=== PATIENT | female | born 1950 | race African-American/Black ===

== ENCOUNTER 2017-03-20 00:52 | Emergency (ER) | payer OTHER ==
[~2017-03-20] VITALS: Ht 165.1 cm; Wt 75.3 kg
[~2017-03-20 00:52] MED LIST: ANT25 PO; COLACE100 MG PO; ECO81 PO; GABAPENTIN TAB600 M1 PO; HYDRALAZINE HCL25 MG PO; JANUVIA100 M1 PO; NEU300 PO; PRAVACHOL20 MG PO; PRO30 PO; PRO60 PO; VITAMIN D22000 I1 PO; ZESTRIL10 MG PO
[2017-03-20 01:16] VITALS: Ht 165.1 cm; Wt 75.3 kg
[2017-03-20 02:30] VITALS: BP 158/75
== END 2017-03-20 02:30 | disposition home or self-care (01) ==
LOC: ED 00:52
DX: S61.211A Laceration without foreign body of left index finger without damage to nail, initial encounter (principal); I10 Essential (primary) hypertension; E11.9 Type 2 diabetes mellitus without complications; Z88.0 Allergy status to penicillin; W26.8XXA Contact with other sharp object(s), not elsewhere classified, initial encounter; Y93.89 Activity, other specified; Y92.89 Other specified places as the place of occurrence of the external cause; Y99.8 Other external cause status
CPT/HCPCS: 90715; J2001

== ENCOUNTER 2017-06-28 12:38 | Inpatient (IN) | payer OTHER ==
[~2017-06-28] VITALS: Ht 165.1 cm; Wt 75.4 kg
[2017-06-28 12:39] VITALS: Ht 165.1 cm; Wt 75.4 kg
[2017-06-28 13:31] LABS: BASOPHIL % 1.1 % (0-2); PLATELET COUNT 275 x10^3mcL (130-400)
[2017-06-28 13:37] LABS: CALCIUM 8.6 mg/dL (8.5-10.1); CARBON DIOXIDE 27.1 mmol/L (21-32); CREATININE SERUM 2.9 mg/dL (0.6-1.0); RED CELL DISTRIBUTION WIDTH 14.7 % (11.5-14.5)
[2017-06-28 13:42] LABS: POTASSIUM SERUM 5.6 mmol/L (3.5-5.1)
[2017-06-28 13:43] LABS: rbc morphology (normal/abnorm) ABNORMAL (NORMAL)
[2017-06-28 15:35] LABS: T3 TOTAL 0.9 ng/mL
[2017-06-28 15:40] LABS: MAGNESIUM 1.8 mg/dL (1.8-2.4); PHOSPHOROUS 4.3 mg/dL (2.5-4.9)
[2017-06-28 16:02] LABS: FREE T4 0.95 ng/dL (0.76-1.46); FREE THYROXINE INDEX 2.2 ug/dL (1.4-4.5); T4(THYROXINE) 6.8 ug/dL (4.7-13.3)
[2017-06-28 16:36] VITALS: BP 111/60
[2017-06-28 17:09] LABS: TOTAL IRON BINDING CAPACITY 286 ug/dL (250-450)
[2017-06-28 17:18] LABS: IRON 31 ug/dL (50-170)
[2017-06-28 19:20] VITALS: BP 162/48
[2017-06-28 22:12] VITALS: BP 172/61
[2017-06-29 04:48] LABS: microscopic required? YES; urine erythrocyte NEGATIVE (NEGATIVE)
[2017-06-29 04:55] LABS: AMPHETAMINE QUAL UR NONE DETECTED (NEG <=1000)
[2017-06-29 06:27] VITALS: BP 158/65
[2017-06-29 06:28] LABS: CALCIUM 8.2 mg/dL (8.5-10.1); CARBON DIOXIDE 22.7 mmol/L (21-32); CREATININE SERUM 2.7 mg/dL (0.6-1.0); MAGNESIUM 1.9 mg/dL (1.8-2.4); PHOSPHOROUS 5.5 mg/dL (2.5-4.9); POTASSIUM SERUM 5.3 mmol/L (3.5-5.1)
[2017-06-29 06:52] LABS: CHOLESTEROL/HDL RATIO 1.7
[2017-06-29 07:23] LABS: BASOPHIL % 0.5 % (0-2); PLATELET COUNT 236 x10^3mcL (130-400); RED BLOOD CELLS 3.25 M/mm3 (4.10-5.10)
[2017-06-29 07:28] LABS: RED CELL DISTRIBUTION WIDTH 14.9 % (11.5-14.5)
[2017-06-29 09:35] LABS: CALCIUM 8.3 mg/dL (8.5-10.1); CARBON DIOXIDE 27.8 mmol/L (21-32); CREATININE SERUM 2.6 mg/dL (0.6-1.0); POTASSIUM SERUM 5.2 mmol/L (3.5-5.1)
[2017-06-29 10:10] VITALS: BP 124/58
[2017-06-29 14:20] VITALS: BP 137/69
[2017-06-29 17:59] VITALS: BP 149/62
[2017-06-29 21:25] VITALS: BP 158/54
[2017-06-30 04:49] VITALS: BP 151/52
[2017-06-30 05:51] LABS: BASOPHIL % 0.6 % (0-2); PLATELET COUNT 241 x10^3mcL (130-400)
[2017-06-30 06:10] LABS: RED CELL DISTRIBUTION WIDTH 14.9 % (11.5-14.5)
[2017-06-30 06:22] LABS: CALCIUM 8.2 mg/dL (8.5-10.1); CREATININE SERUM 2.3 mg/dL (0.6-1.0); MAGNESIUM 1.6 mg/dL (1.8-2.4); PHOSPHOROUS 4.4 mg/dL (2.5-4.9); POTASSIUM SERUM 4.9 mmol/L (3.5-5.1)
[2017-06-30 06:49] LABS: rbc morphology (normal/abnorm) ABNORMAL (NORMAL)
[2017-06-30 10:16] VITALS: BP 170/59
[2017-06-30 13:55] VITALS: BP 157/57
[2017-06-30] MEDS ORDERED: CLOPIDOGREL75 M1 PO (14:11)
[2017-06-30] MEDS ORDERED: METOPROLOL TART25 M1 PO (14:12)
[2017-06-30] MEDS ORDERED: ATORVASTATIN CA40 M1 PO (14:12)
[2017-06-30] MEDS ORDERED: NIT0.4 SL (14:13)
[2017-06-30] MEDS ORDERED: IMD60 PO (14:14)
[2017-06-30 16:49] VITALS: BP 157/57
[2017-06-30 17:17] VITALS: BP 151/46
== END 2017-06-30 18:34 | disposition home or self-care (01) | DRG 280 ==
LOC: ED 12:38 → DU 14:31
PROVIDERS: Emergency Medicine; Family Medicine
DX: I21.4 Non-ST elevation (NSTEMI) myocardial infarction (principal); N17.0 Acute kidney failure with tubular necrosis; I16.1 Hypertensive emergency; N18.4 Chronic kidney disease, stage 4 (severe); E87.5 Hyperkalemia; D64.9 Anemia, unspecified; E78.5 Hyperlipidemia, unspecified; N28.1 Cyst of kidney, acquired; E11.22 Type 2 diabetes mellitus with diabetic chronic kidney disease; I12.9 Hypertensive chronic kidney disease with stage 1 through stage 4 chronic kidney disease, or unspecified chronic kidney disease; E11.21 Type 2 diabetes mellitus with diabetic nephropathy; I08.1 Rheumatic disorders of both mitral and tricuspid valves; E87.8 Other disorders of electrolyte and fluid balance, not elsewhere classified; E83.51 Hypocalcemia; E83.42 Hypomagnesemia; E11.65 Type 2 diabetes mellitus with hyperglycemia; E11.40 Type 2 diabetes mellitus with diabetic neuropathy, unspecified; Z86.73 Personal history of transient ischemic attack (TIA), and cerebral infarction without residual deficits; E78.00 Pure hypercholesterolemia, unspecified; Z88.0 Allergy status to penicillin; Z83.3 Family history of diabetes mellitus
CPT/HCPCS: 82962; 83880; 84439; J1644; J1815; J3010; J3475; J3490; J7030; Q0092

== ENCOUNTER 2017-08-03 06:29 | Emergency (ER) | payer OTHER ==
[~2017-08-03] VITALS: Ht 165.1 cm; Wt 76.7 kg
[~2017-08-03 06:29] MED LIST changes: +ATORVASTATIN CA40 M1 PO; +CLOPIDOGREL75 M1 PO; +IMD60 PO; +METOPROLOL TART25 M1 PO; +NIT0.4 SL
[2017-08-03 06:34] VITALS: Ht 165.1 cm; Wt 76.7 kg
[2017-08-03 07:21] LABS: BASOPHIL % 0.5 % (0-2); PLATELET COUNT 256 x10^3mcL (130-400)
[2017-08-03 07:25] LABS: RED CELL DISTRIBUTION WIDTH 14.8 % (11.5-14.5); rbc morphology (normal/abnorm) ABNORMAL (NORMAL)
[2017-08-03 07:34] LABS: CALCIUM 8.9 mg/dL (8.5-10.1); CARBON DIOXIDE 21.7 mmol/L (21-32); CREATININE SERUM 3.2 mg/dL (0.6-1.0); POTASSIUM SERUM 5.5 mmol/L (3.5-5.1)
[2017-08-03 09:15] VITALS: BP 177/85
== END 2017-08-03 09:15 | disposition home or self-care (01) ==
LOC: ED 06:29
PROVIDERS: Emergency Medicine
DX: E11.22 Type 2 diabetes mellitus with diabetic chronic kidney disease (principal); I12.0 Hypertensive chronic kidney disease with stage 5 chronic kidney disease or end stage renal disease; N18.6 End stage renal disease; I25.10 Atherosclerotic heart disease of native coronary artery without angina pectoris; E78.00 Pure hypercholesterolemia, unspecified; E87.5 Hyperkalemia; D64.9 Anemia, unspecified; Z88.0 Allergy status to penicillin
CPT/HCPCS: J3490